=== PATIENT | male | born 1965 | race Caucasian/White ===

== ENCOUNTER → 2019-04-21 08:31 | Outpatient (BNVA) | payer OTHER, SELFPAY | PROVIDERS: Family Provider Nurse Practitioner Family; PCP Registered Nurse; Visit Provider Registered Nurse | DX: Z00.00 Encounter for general adult medical examination without abnormal findings (principal); E11.9 Type 2 diabetes mellitus without complications; Z12.11 Encounter for screening for malignant neoplasm of colon; I10 Essential (primary) hypertension; F52.21 Male erectile disorder; E78.5 Hyperlipidemia, unspecified | CPT/HCPCS: 80053; 80061; 82044; 83036; 85025 ==

== ENCOUNTER 2019-04-30 13:03 | Day surgery (SDC) | payer OTHER, SELFPAY ==
[2019-04-30 13:40] VITALS: BMI 23.1
[2019-05-01] MEDS: sodium chloride 0.9% 1,000 ML 30 ML (06:20)
[2019-05-01 06:22] LABS: Glucose Point of Care 139 mg/dL (70-110)
--- NOTE | 2019-05-01 06:38 | W.PM.OPSUD ---
Surgery/Procedure H&P Update DATE OF PROCEDURE: May 01, 2019 DATE H&P PERFORMED: 04/21/19 H&P UPDATE INFORMATION: I have reviewed H&P completed within last 30 days and I have examined patient prior to procedure PLANNED PROCEDURE: Operation Date: 05/01/19 07:00 Proposed Procedures p Colonoscopy(Not Applicable) - Anibal Nichols MD
[2019-05-01 06:40] VITALS: BP 121/92; PULSE 80; RESP 18; TEMP 36.1; O2SAT 98
--- NOTE | 2019-05-01 06:50 | ANES.PREANE2 ---
Pre-Anesthetic Assessment Pre-Anesthetic Assessment: Height/Weight: Height 1.98 m Weight 90.718 kg Temp Pulse Resp BP Pulse Ox 97.0 F L 80 18 121/92 98 05/01/19 06:40 05/01/19 06:40 05/01/19 06:40 05/01/19 06:40 05/01/19 06:40 Proposed Procedure: Operation Date: 05/01/19 07:00 Proposed Procedures p Colonoscopy(Not Applicable) - Anibal Nichols MD Last intake: Intake Last Liquid Date 04/30/19 Last Liquid Time 22:00 Last Solid Date 04/29/19 Last Solid Time 22:00 Social: Social History: Alcohol and No tobacco Exam: Pre-Anes Outpt Exam: alert, oriented x 3, clear to auscultation bilaterally and regular rate & rhythm Airway: Submandibular: WNL Cervical ROM: WNL MP: 2 Dentition: False History/ROS: No significant history except as noted and No significant complaints CV/HEM: CV/HEM: HTN : : None reported Hepatic: Hepatic: None reported GI: GI: None reported Metabolic: Metabolic: DM Musc/skel: Musc/skel: None reported Neuropsych: Neuropsych: None reported Anesthetic Plan: ASA status: 2 Anesthesia: Anesthesia Evaluation and MAC Risk of > 500 ml blood loss (7ml/kg in children): No PFSH Anesthesia PFSH: Social History Quit status (tobacco): has quit using tobacco Year quit tobacco: 2015 Alcohol intake: current Alcohol intake frequency: holidays/special occasions only Data Anesthesia Other Labs: Laboratory Results - last 48 hr 05/01/19 06:19 POC Glucose 139 Cardiac Studies: No Data to Display
[2019-05-01 07:07] VITALS: BP 114/80; PULSE 81; RESP 16; TEMP 36.3; O2SAT 97
[2019-05-01 07:22] VITALS: BP 125/83; PULSE 77; RESP 18; TEMP 36.3; O2SAT 96
== END 2019-05-01 07:30 | disposition home or self-care (01) ==
PROVIDERS: Family Provider Nurse Practitioner Family; PCP Registered Nurse; Visit Provider Surgery
PROC: 0DJD8ZZ Inspection of Lower Intestinal Tract, Via Natural or Artificial Opening Endoscopic (ICD-10-PCS; CPT 45378; principal; 2019-05-01 07:00)
DX: Z12.11 Encounter for screening for malignant neoplasm of colon (principal); K57.30 Diverticulosis of large intestine without perforation or abscess without bleeding; K64.8 Other hemorrhoids; E11.9 Type 2 diabetes mellitus without complications; I10 Essential (primary) hypertension; E78.5 Hyperlipidemia, unspecified; F52.21 Male erectile disorder; Z82.49 Family history of ischemic heart disease and other diseases of the circulatory system; Z83.3 Family history of diabetes mellitus; Z87.891 Personal history of nicotine dependence
CPT/HCPCS: 12345; 36416; 45378; 82962; J2001; J2704; J7030

== ENCOUNTER 2020-04-01 14:46 | Outpatient (CLI) | payer OTHER, SELFPAY ==
--- NOTE | 2020-04-01 14:55 | XR_ITS ---
WS: [id number] Left shoulder, 3 views, 04/01/2020 Clinical Data: M25.512 - Pain in left shoulder Comparison: None. Findings: No fractures or dislocations are seen. The AC joint is normal. The adjacent left clavicle, left scapu la and ribs are normal. The soft tissues are unremarkable. XR/XR shoulder LT min 2V* [id number] Impression: Negative left shoulder.
== END 2020-04-01 14:47 | disposition home or self-care (01) ==
PROVIDERS: PCP Registered Nurse; Visit Provider Registered Nurse
DX: M25.512 Pain in left shoulder (principal)
CPT/HCPCS: 73030

== ENCOUNTER 2020-04-19 15:48 | Outpatient (CLI) | payer OTHER, SELFPAY ==
--- NOTE | 2020-04-19 16:05 | MR_ITS ---
WS: [id number] MRI LEFT SHOULDER NONCONTRAST TECHNIQUE: Sagittal T2, coronal T1, T2 and proton density imaging. Axial gradient PDE imaging. CLINICAL INFORMATION: ACUTE LEFT SHOULDER PAIN COMPARISON: None. FINDINGS: Moderate degenerative arthritis at the AC joint with synovial thickening and edema. Mild downsloping acromion with subacromial spurring. Narrowing of the subacromial space. Mild chronic thinning of the supraspinatus which appears intact. Normal infraspinatus and teres minor. Small amount of edema along the humeral neck with irregularity suspicious for tiny nondisplaced fracture. This can be followed u p with CT. Normal subscapularis tendon. Normal biceps tendon in the bicipital groove. Normal intra-articular bic eps tendon. Normal biceps labral anchor. Degenerative fraying of the glenoid labrum. Normal glenoid. MR/MR shoulder LT wo con* [id number] IMPRESSION: 1. Small amount of edema along the medial humeral neck with slight irregularit y suspicious for tiny nondisplaced fracture. This can be further evaluated with CT. 2. Moderate degenerative arthritis AC joint with edema and mild downsloping ac romion. 3. Narrowing of the subacromial space. Rotator cuff is intact. 4. Normal biceps tendon in the bicipital groove. 5. No other significant findings.
== END 2020-04-19 15:49 | disposition home or self-care (01) ==
LOC: RADWPI 15:51
PROVIDERS: PCP Registered Nurse; Visit Provider Registered Nurse
DX: M19.012 Primary osteoarthritis, left shoulder (principal); R60.0 Localized edema
CPT/HCPCS: 73221

== ENCOUNTER 2020-09-25 11:02 | Outpatient (CLI) | payer OTHER, SELFPAY ==
[2020-09-25 11:02] VITALS: BP 131/79; PULSE 92; RESP 18; TEMP 36.8; O2SAT 96; BMI 27.1
[2020-09-25 11:29] VITALS: BP 117/74; PULSE 90; RESP 17; TEMP 36.8; O2SAT 94
[2020-09-25 12:25] VITALS: BP 130/83; PULSE 86; RESP 18; TEMP 37.1; O2SAT 98
== END 2020-09-25 11:03 | disposition home or self-care (01) ==
LOC: ER 11:08
PROVIDERS: PCP Registered Nurse; Visit Provider Nurse Practitioner Family
DX: U07.1 COVID-19 (principal)
CPT/HCPCS: 96365

== ENCOUNTER → 2020-12-20 08:04 | Outpatient (BNVA) | payer OTHER, SELFPAY | PROVIDERS: PCP Registered Nurse; Visit Provider Specialist | DX: M25.512 Pain in left shoulder (principal) | CPT/HCPCS: 73030 ==

== ENCOUNTER 2020-12-21 13:18 | Outpatient (CLI) | payer OTHER, SELFPAY ==
[2020-12-21 14:31] LABS: Glomerular Filtration Rate 62.9 mL/min (90-130)
[2020-12-24 07:38] LABS: Basophils % 0.6 %; Eosinophils # 0.1 10^3/uL (0.0-0.8); Eosinophils % 1.7 %; Hematocrit 48.8 % (42.0-52.0); Hemoglobin 16.3 g/dL (11.7-16.6); Lymphocytes # 1.5 10^3/uL (0.8-4.8); Lymphocytes % 21.4 %; Mean Corpuscular HGB Conc 33.4 g/dL (30.0-36.0); Mean Corpuscular Hemoglobin 28.4 pg (28.0-34.0); Mean Platelet Volume 10.9 fL (7.4-10.4); Monocytes # 0.8 10^3/uL (0.2-0.9); Monocytes % 11.4 %; Neutrophils # 4.62 10^3/uL (1.8-7.7); Neutrophils % 64.2 %; Nucleated Red Blood Cells % 0 %; Platelet Count 263 10^3/cmm (130-400); Red Blood Count 5.74 10^6/uL (4.1-5.3); Red Cell Distribution Width 13.9 % (12.1-15.1); White Blood Count 7.2 10^3/uL (4.0-10.0)
[2020-12-24 08:10] LABS: Alanine Aminotransferase 62 U/L (0-41); Albumin Level 4.8 g/dL (3.5-5.2); Alkaline Phosphatase 83 IU/L (40-130); Anion Gap 15.4 (5-19); Aspartate Amino Transferase 37 U/L (0-40); Blood Urea Nitrogen 20 mg/dL (6-20); C Reactive Protein 1.8 mg/L (0.0-4.9); Carbon Dioxide 26 mmol/L (22-29); Chloride 104 mmol/L (98-107); Glomerular Filtration Rate 139.9 mL/min (90-130); Glucose 198 mg/dL (65-115); Osmolality Calculated 300 mOsm/kg (285-295); Potassium 4.4 mmol/L (3.5-5.1); Sodium 141 mmol/L (136-145); Total Bilirubin 0.4 mg/dL (0.15-1.2); Total Protein 7.8 g/dL (6.6-8.7)
[2020-12-27 15:09] LABS: Erythrocyte Sedimentation Rate 2 mm/hr (0-10)
[2020-12-27 16:13] LABS: Cyclic Citrullinated Peptide <16 UNITS
== END 2020-12-21 13:19 | disposition home or self-care (01) ==
LOC: LAB 13:24
PROVIDERS: PCP Registered Nurse; Visit Provider Specialist
DX: M25.512 Pain in left shoulder (principal)
CPT/HCPCS: 36415; 82565

== ENCOUNTER 2020-12-24 06:00 | Outpatient (CLI) | payer OTHER, SELFPAY | END 2020-12-24 06:01 | disposition home or self-care (01) | LOC: LAB 02-21 13:41 | PROVIDERS: PCP Registered Nurse; Visit Provider Specialist | DX: M25.512 Pain in left shoulder (principal) | CPT/HCPCS: 80053; 85025; 85651; 86140; 86200; 86431 ==

== ENCOUNTER → 2021-01-25 09:46 | Outpatient (BNVA) | payer OTHER, SELFPAY | PROVIDERS: PCP Registered Nurse; Visit Provider Registered Nurse | DX: R19.7 Diarrhea, unspecified (principal); L20.9 Atopic dermatitis, unspecified | CPT/HCPCS: 87493; 87506 ==

== ENCOUNTER 2023-08-19 19:52 | Emergency (ER) | payer BC, SELFPAY ==
[2023-08-19 19:59] VITALS: BP 156/80; PULSE 130; RESP 22; TEMP 37.1; O2SAT 94; BMI 27.1
--- NOTE | 2023-08-19 20:06 | CTR_ITS ---
PROCEDURE INFORMATION: Exam: CT Lumbar Spine Without Contrast Exam date and time: 08/19/2023 9:13 PM Age: 58 years old Clinical indication: Injury or trauma; Fall; Blunt trauma (contusions or hematomas); Patient HX: Patient slipped from a pool ladder and fell aproximately five feet directly onto back on gravel. C/O severe mid back pain with radiculopathy down both lower extremities. ; Additional info: Low back pain TECHNIQUE: Imaging protocol: Computed tomography of the lumbar spine without contrast. Radiation optimization: All CT scans at this facility use at least one of these dose optimization techniques: automated exposure control; mA and/or kV adjustment per patient size (includes targeted exams where dose is matched to clinical indication); or iterative reconstruction. COMPARISON: CT thoracic spin wo con* [id number] 08/19/2023 9:10 PM RADIATION DOSE METRICS: Total DLP (mGy-cm): 1100.83 FINDINGS: Bones/joints: No lumbar spine fracture or subluxation. Lumbar interspaces are preserved. There is chronic lower lumbar facet hypertrophy especially between L3 and S1. At L3-L4 there is mild central stenosis due predominantly to facet and ligamentum flavum hypertrophy as well as mild disc bulging. Minimal midline AP canal diameter is 8 mm. At L4-L5 the thecal sac is deformed into a small triangular shaped measuring 7 mm due to combination of broad-based disc bulging and severe facet and ligamentum flavum hypertrophy. Sacroiliac joints are partially fused by bone. Soft tissues: Unremarkable. CT/CT lumbar spine wo con* [id number] IMPRESSION: 1. No acute lumbar spine findings. 2. L3-L4 and L4-L5 central spinal stenosis due to chronic degenerative changes. 3. Fused sacroiliac joints
--- NOTE | 2023-08-19 20:06 | CTR_ITS ---
PROCEDURE INFORMATION: Exam: CT Thoracic Spine Without Contrast Exam date and time: 08/19/2023 9:10 PM Age: 58 years old Clinical indication: Injury or trauma; Fall; Blunt trauma (contusions or hematomas); Patient HX: Patient slipped from a pool ladder and fell aproximately five feet directly onto back on gravel. C/O severe mid back pain with radiculopathy down both lower extremities. ; Additional info: Traumatic upper back pain TECHNIQUE: Imaging protocol: Computed tomography of the thoracic spine without contrast. Radiation optimization: All CT scans at this facility use at least one of these dose optimization techniques: automated exposure control; mA and/or kV adjustment per patient size (includes targeted exams where dose is matched to clinical indication); or iterative reconstruction. COMPARISON: No relevant prior studies available. RADIATION DOSE METRICS: Total DLP (mGy-cm): 867.02 FINDINGS: Bones/joints: No thoracic spine fracture or subluxation. Mild central stenosis at the T7 level due to severe facet hypertrophy. The central canal is narrowed to 8 mm indicating mild central stenosis. The left neural foramen at T7-8 is also narrowed. Numerous lateral bridging osteophytes throughout the thoracic spine. Soft tissues: Unremarkable. Vasculature: Ectatic ascending aorta measuring up to 3.9 cm. Lungs: Right basilar dependent atelectasis. CT/CT thoracic spin wo con* [id number] IMPRESSION: 1. No acute thoracic spine findings. 2. Mild central stenosis at T7 due to chronic facet hypertrophy.
--- NOTE | 2023-08-19 20:06 | XRR_ITS ---
PROCEDURE INFORMATION: Exam: XR Left Ankle Exam date and time: 08/19/2023 9:18 PM Age: 58 years old Clinical indication: Pain; Ankle; Left; Additional info: Fall, ankle pain, muscle spasms TECHNIQUE: Imaging protocol: Radiologic exam of the left ankle. Views: 3 or more views. COMPARISON: No relevant prior studies available. FINDINGS: Bones/joints: No acute fracture. Chronic medullary jesus in the tibia. Soft tissues: Lateral soft tissue swelling. XR/XR ankle LT min 3V* [id number] IMPRESSION: 1. No acute bony findings 2. Lateral swelling
[2023-08-19] MEDS: ketorolac 30 mg/mL INJ IVP (20:19)
[2023-08-19] MEDS: ondansetron 2 mg/ML SDV 2 mL 4 MG IVP (20:19)
[2023-08-19] MEDS: HYDROmorphone 1 mg/mL INJ 1 mL IVP (20:19)
--- NOTE | 2023-08-19 21:04 | ED_ITS ---
HPI - Fall General: Chief Complaint: Fall Stated Complaint: Fall,Back pain Time Seen by Provider: 08/19/23 20:04 History of Present Illness: Patient was getting out of the pool and fell. He fell onto his backside. Apparently he bruised his foot and ankle as he fell. He is complaining of severe mid thoracic back pain. He is quite tender to palpation in his low thoracic vertebra. No saddle numbness, no urinary retention or incontinence, no focal motor deficit, no sensory deficit. no recent fever. no cough. no shortness of breath. no chest pain. no abdominal pain. no nausea or vomiting. no dysuria. no altered mental status. no edema. Review of Systems Narrative: Constitutional symptoms: Negative except as documented in HPI. Skin symptoms: Negative except as documented in HPI. Eye symptoms: Negative except as documented in HPI. ENMT symptoms: Negative except as documented in HPI. Respiratory symptoms: Negative except as documented in HPI. Cardiovascular symptoms: Negative except as documented in HPI. Gastrointestinal symptoms: Negative except as documented in HPI. Genitourinary symptoms: Negative except as documented in HPI. Musculoskeletal symptoms: Negative except as documented in HPI. Neurologic symptoms: Negative except as documented in HPI. Psychiatric symptoms: Negative except as documented in HPI. Endocrine symptoms: Negative except as documented in HPI. Physical Exam Narrative: EXAM NARRATIVE: General: Alert, no acute distress. Skin: warm and dry Head: Normocephalic Neck: Trachea midline Eye: Extraocular movements are intact. Ears, nose, mouth and throat: Oral mucosa moist Respiratory: Respirations are non-labored Musculoskeletal: Normal ROM. Some bruising of the left lateral malleolus. Neurological: Alert and oriented, No focal neurological deficit observed. Back: Patient is quite tender in his lower thoracic vertebra area. No step- offs. He does have some bony tenderness. Psychiatric: Cooperative, appropriate mood & affect. Course Vital Signs: Vital signs: Vital Signs Temperature 98.7 F 08/19/23 19:59 Pulse Rate 81 08/19/23 21:55 Respiratory Rate 18 08/19/23 21:55 Blood Pressure 130/79 08/19/23 21:55 Pulse Oximetry 96 08/19/23 21:55 MDM - Fall Medical Decision Making CT of the thoracic and lumbar spine were ordered. Also x-ray of the ankle. Lab Data Radiology Impressions Ankle X-Ray 08/19/23 20:06 IMPRESSION: 1. No acute bony findings 2. Lateral swelling Lumbar Spine CT 08/19/23 20:06 IMPRESSION: 1. No acute lumbar spine findings. 2. L3-L4 and L4-L5 central spinal stenosis due to chronic degenerative changes. 3. Fused sacroiliac joints Thoracic Spine CT 08/19/23 20:06 IMPRESSION: 1. No acute thoracic spine findings. 2. Mild central stenosis at T7 due to chronic facet hypertrophy. All radiology interpretation(s) finalized by discharge Discharge Plan Discharge Patient Disposition: Home Clinical Impression: Back injury Qualifiers: Encounter type: initial encounter Qualified Code(s): S39.92XA - Unspecified injury of lower back, initial encounter Condition: Stable Prescriptions: New cyclobenzaprine 10 mg tablet 10 mg PO Q8H Qty: 20 0RF hydrocodone-acetaminophen 5-325 mg tablet 1 tab PO Q6H PRN (Reason: pain) Qty: 20 0RF diclofenac sodium 50 mg tablet,delayed release (DR/EC) 50 mg PO Q12H Qty: 20 0RF Discharge Orders: Discharge ED (Routine); Ordered 08/19/23 Ordered By: Nita Zaragoza Discharge Diet: Usual diet Discharge Activity: Increase activity as tolerated Patient Instructions: Opioid Safety, Pain Management Activity Restrictions/Additional Instructions: Thank you for choosing [facility] for your healthcare needs today. Please realize this is an emergency room and that we are providing you with a medical screening exam and this may not be complete and all inclusive of all the testing and or work up that you may need to determine your ailment or severity of your illness. You have been screened and evaluated and felt safe for discharge. Health conditions do change or evolve sometimes and as such it is important that you follow up with your Primary Doctor to be re checked, 3-5 days is a general good time frame for follow up. You are always welcome to return to the ED for re assessment if your symptoms are worsening or you have new concerns Coding Level of Care Code ED [employer] Engineer for Daphney Haji
--- NOTE | 2023-08-19 21:35 | PC.NURSE ---
Pt states pain is a little better, still having muscle spasms. Provider informed
[2023-08-19] MEDS: HYDROcodone-acetaminophen 5-325 mg Tablet 2 TAB PO (21:41)
[2023-08-19] MEDS: cyclobenzaprine 10 mg Tablet PO (21:41)
[2023-08-19 21:55] VITALS: BP 130/79; PULSE 81; RESP 18; O2SAT 96
== END 2023-08-19 22:00 | disposition home or self-care (01) ==
PROVIDERS: Emergency Provider Emergency Medicine
DX: S39.92XA Unspecified injury of lower back, initial encounter (principal); X58.XXXA Exposure to other specified factors, initial encounter
CPT/HCPCS: 72128; 72131; 73610; 96374; 96375; 99285; J1170; J1885; J2405

== ENCOUNTER 2023-09-17 16:50 | Outpatient (CLI) | payer BC, SELFPAY ==
--- NOTE | 2023-09-17 16:54 | XRR_ITS ---
PROCEDURE INFORMATION: Exam: XR Cervical Spine Exam date and time: 09/17/2023 4:57 PM Age: 58 years old Clinical indication: Radicular pain (radiculopathy); Patient HX: Radiculopathy, cervical region. PT states he broke his back on August 19, 2023 and has has neck pain ever since. PT also states in the last couple of days he has started to experience tingling in the arms and hands. ; Additional info: M54.12 - radiculopathy, cervical region TECHNIQUE: Imaging protocol: Radiologic exam of the cervical spine. Views: 2 or 3 views. COMPARISON: CR XR shoulder LT min 2V* [id number] 12/20/2020 8:11 AM FINDINGS: Bones/joints: Slight disc space narrowing and spurring C5-C6.. No acute fracture. Normal alignment. Soft tissues: Unremarkable. XR/XR cervical spine 3V* [id number] IMPRESSION: No acute findings.
== END 2023-09-17 16:51 | disposition home or self-care (01) ==
LOC: RAD 16:51
PROVIDERS: PCP Family Medicine; Visit Provider Family Medicine
DX: M54.12 Radiculopathy, cervical region (principal); Z87.81 Personal history of (healed) traumatic fracture
CPT/HCPCS: 72040

== ENCOUNTER → 2024-06-02 12:59 | Outpatient (BNVA) | payer BC, SELFPAY | PROVIDERS: PCP Family Medicine; Visit Provider Specialist | DX: M25.511 Pain in right shoulder (principal); M75.41 Impingement syndrome of right shoulder; G89.29 Other chronic pain | CPT/HCPCS: 73030 ==

== ENCOUNTER 2024-12-26 14:08 | Outpatient (CLI) | payer BC, SELFPAY ==
--- NOTE | 2024-12-26 15:15 | MR_ITS ---
WS: [id number] MRI RIGHT SHOULDER HISTORY: Chronic right shoulder pain COMPARISON: Radiograph 06/02/2024 TECHNIQUE: Multiplanar sequences of the shoulder joint are submitted. Marked AC joint arthritis. Narrowing of the AC joint. Only mild synovial thickening. There is osteophyte encroachment upon the myotendinous portion of the supraspinatus. Mild downsloping of the acromion. No os acromion. Normal biceps tendon. Normal position of the humeral head at the glenoid. No rotator cuff muscle atrophy or edema. No rotator cuff tendon tears. Mild tendinopathy in the supraspinatus. Intrasubstance degeneration in the labrum greatest involving the anterior superior labrum but no definite tears. Normal rotator cuff interval. MR/MR shoulder RT wo con* [id number] IMPRESSION: 1. Marked AC joint arthritis with mild encroachment upon the supraspinatus melissa tendinous insertion. 2. No rotator cuff tendon tear. Very minimal tendinopathy of the supraspinatus . 3. Mild intrasubstance degeneration in the anterior superior labrum. Normal po sition of the AC joint.
== END 2024-12-26 14:09 | disposition home or self-care (01) ==
PROVIDERS: PCP Family Medicine; Visit Provider Nurse Practitioner
DX: M19.011 Primary osteoarthritis, right shoulder (principal); M25.711 Osteophyte, right shoulder
CPT/HCPCS: 73221

== ENCOUNTER → 2025-01-26 13:06 | Outpatient (BNVA) | payer BC, SELFPAY | PROVIDERS: PCP Family Medicine; Visit Provider Specialist | DX: M75.41 Impingement syndrome of right shoulder (principal); M19.011 Primary osteoarthritis, right shoulder; M75.01 Adhesive capsulitis of right shoulder | CPT/HCPCS: 73030 ==